=== PATIENT | male | born 1950 | race African-American/Black ===

== ENCOUNTER 2020-07-28 10:16 | Emergency (ER) | payer BC, MEDICAID, MEDICARE ==
[~2020-07-28] VITALS: Ht 167.6 cm; Wt 100.0 kg
[2020-07-28] MEDS ORDERED: ACETAMINOPHEN 325MG TABLET PO ONE (10:45)
[2020-07-28 11:18] LABS: BASOPHILS % 0.4 % (0.0-2.0); EOSINOPHILS % 0.4 % (0.0-5.0); HEMOGLOBIN. 12.8 g/dL (14.0-18.0); LYMPHOCYTES % 15.9 % (20.0-50.0); MEAN CORPUSCULAR HEMOGLOBIN 28.4 pg (28.0-32.0); MEAN CORPUSCULAR VOLUME 82.3 fL (80.0-94.0); MEAN PLATELET VOLUME 8.7 fl (7.4-10.4); MONOCYTES % 9.3 % (2.0-8.0); PLATELET 182 x1000/uL (130-400); RED BLOOD CELL COUNT 4.49 mill/uL (4.7-6.1); RED CELL DISTRIBUTION WIDTH 13.2 % (11.6-14.6)
[2020-07-28 11:27] LABS: CHLORIDE 107 mEq/L (98-107)
[2020-07-28 12:05] VITALS: BP 145/68
== END 2020-07-28 12:07 | disposition home or self-care (01) ==
LOC: ER 10:16
DX: G89.29 Other chronic pain (principal); M25.559 Pain in unspecified hip; Z59.0 Homelessness
CPT/HCPCS: 36415; 80053; 85025; 99283

== ENCOUNTER 2020-09-15 19:07 | Emergency (ER) | payer BC ==
[~2020-09-15] VITALS: Ht 185.4 cm; Wt 122.9 kg
[2020-09-15] MEDS ORDERED: MOBI7 MT (23:07)
[2020-09-15] MEDS ORDERED: NEOM7.5D8 LEFTEYE (23:09)
[2020-09-15 23:46] VITALS: BP 145/77
== END 2020-09-15 23:50 | disposition home or self-care (01) ==
LOC: ER 19:07
DX: H10.9 Unspecified conjunctivitis (principal); M25.551 Pain in right hip; I10 Essential (primary) hypertension; Z98.890 Other specified postprocedural states
CPT/HCPCS: 99281; 99283

== ENCOUNTER 2020-09-18 18:26 | Emergency (ER) | payer BC ==
[~2020-09-18] VITALS: Ht 185.4 cm; Wt 109.0 kg
[~2020-09-18 18:26] MED LIST: MOBI7 MT; NEOM7.5D8 LEFTEYE
[2020-09-19 06:58] VITALS: BP 122/78
== END 2020-09-19 06:59 | disposition home or self-care (01) ==
LOC: ER 18:31
DX: R53.81 Other malaise (principal); I10 Essential (primary) hypertension; Z98.84 Bariatric surgery status; Z59.0 Homelessness
CPT/HCPCS: 99281